=== PATIENT | male | born 1965 | race Two or more races ===

== ENCOUNTER 2020-08-17 14:24 | Emergency (ER) | payer MEDICAID, OTHER ==
[~2020-08-17] VITALS: Ht 170.2 cm; Wt 93.0 kg
[2020-08-17] MEDS ORDERED: amLODIPine BESYLATE 5 MG TAB PO ONE (15:30)
[2020-08-17] MEDS ORDERED: cloNIDine HCL 0.1 MG TAB PO ONE (18:15)
[2020-08-17 18:24] LABS: Basophils # (auto) 0 10 ^3/uL (0-0.2); Basophils % (auto) 0.5 % (0.0-2.0); Eosinophils # (auto) 0 10 ^3/uL (0-0.8); Eosinophils % (auto) 0.2 % (0.0-7.0); Hematocrit 47.8 % (41.0-53.0); Lymphocytes # (auto) 0.8 10 ^3/uL (0.4-5.4); Lymphocytes % (auto) 11.1 % (10.0-50.0); Mean Corpuscular Hemoglobin 30.7 pg (28.0-32.0); Mean Corpuscular Hgb Conc. 33.5 g/dL (32.0-36.0); Mean Corpuscular Volume 91.6 fL (80.0-100.0); Monocytes # (auto) 0.4 10 ^3/uL (0-1.3); Monocytes % (auto) 5.3 % (0.0-12.0); Neutrophils # (auto) 5.7 10 ^3/uL (1.6-8.6); Neutrophils % (auto) 82.9 % (37.0-80.0); Nucleated Red Blood Cells % 0.1 %; Platelet Count (auto) 246 10^3/uL (140-450); Red Blood Cells 5.22 10^6/uL (4.5-5.90); Red Cell Distribution Width 14.1 % (11.8-14.3); White Blood Cell 6.8 10^3/uL (4.4-10.8)
[2020-08-17 18:38] LABS: Albumin 4.6 g/dL (3.4-5.0); BUN/Creatinine Ratio 10.5; Calcium 9.8 mg/dL (8.5-10.1); Magnesium 2.2 mg/dL (1.6-2.6)
[2020-08-17 18:45] LABS: Bilirubin, Total 0.4 mg/dL (0.2-1.0); Total Protein 8.5 g/dL (6.4-8.2)
[2020-08-17] MEDS ORDERED: METOPROLOL TARTRATE 25 MG TAB PO ONE (19:15)
[2020-08-17] MEDS ORDERED: METOPROLOL TARTRATE 1MG/1ML-5ML VIAL IV ONE (19:15)
[2020-08-17 20:11] VITALS: BP 140/85
== END 2020-08-17 20:27 | disposition home or self-care (01) ==
LOC: ER 14:24
DX: I16.0 Hypertensive urgency (principal); I10 Essential (primary) hypertension; F41.9 Anxiety disorder, unspecified
CPT/HCPCS: 36415; 71046; 80053; 83735; 84484; 85025; 93005